=== PATIENT | female | born 1980 | race African-American/Black ===

== ENCOUNTER 2019-04-21 19:45 | Emergency (ER) | payer MEDICARE ==
[~2019-04-21] VITALS: Ht 170.2 cm; Wt 77.1 kg
--- OUTSIDE RECORDS SUMMARY | 2019-04-21 19:47 | XMS REPORT ---
[facility] Address Unknown Phone Unavailable Care Team Providers Care Drying Machine Receiver Name Role Phone Unavailable Unavailable Payers Payer Name Policy Type Policy Number Effective Date Expiration Date Problems This patient has no known problems. Allergies, Adverse Reactions, Alerts Allergy Name Allergy Type Status Severity Reaction(s) Onset Date Inactive Date Treating Clinician Comments No Known Allergies DA Active U 2019-01-13 00:00:00 No Known Contrast Allergies DA Active U 2006-12-25 00:00:00 No Known Drug Allergies DA Active U 2006-12-25 00:00:00 No Known Food Allergies DA Active U 2006-12-25 00:00:00 No Known Other Allergies DA Active U 2006-12-25 00:00:00 Medications This patient has no known medications. Results Test Description Test Time Test Comments Text Results Atomic Results Result Comments - CT MAXIFAC W/CONTRAST 2019-01-13 17:43:00 Name: TIN PRINCE [facility] : 1980 Age/S: 38 / F [address] [place] [address] Unit #: [id number] Loc: [place] [address] Phys: Rafael Padron DO Acct: [id number] Dis Date: Status: REG ER PHONE #: [phone] Exam Date: 01/13/2019 1713 FAX #: [phone] Reason: pain EXAMS: CPT CODE: [id number] CT MAXIFAC W/CONTRAST [address] WITH IV CONTRAST AND MULTIPLANAR REFORMATS 01/13/2019 AT 1713 HOURS. CLINICAL HISTORY:Right posterior upper/lower teeth pain for 2 weeks. COMPARISON STUDIES: None relevant. ADMINISTERED CONTRAST: 100 mL of Isovue-300 intravenously. DLP: 187.34 mGy-cm FINDINGS: Contiguous 2.5 mm axial images of the maxillofacial bones were obtained with IV contrast. The acquired data was used to create multiplanar reformatted images. A focal cavity is identified inferomedially to the right 2nd inferior molar tooth on a background of prior dental crowns. Additional multiple dental crowns are also seen bilaterally with no periapical abscesses on the right. A large cavity with a missing crown is identified involving the left inferior 2nd molar tooth with a small lucent periapical abscess. No acute periosteal reaction or bone destruction. No organized soft tissue abscess. The nasopharynx, oropharynx, glottis and visualized subglottic trachea are unremarkable. Subcentimeter bilateral cervical lymph nodes are seen, not enlarged by size criteria. The parapharyngeal and bead wire taper spaces are intact. No abnormal intracranial enhancement along the visualized segments. Mild mucosal thickening is seen along the floor of both maxillary sinuses. Clear mastoid air cells. Mild mucosal thickening of the left frontal sinus is also noted. IMPRESSION: 1. Multifocal bilateral odontogenic disease with focal cavities involving the right and left 2nd inferior molar teeth. Small left 2nd molar periapical abscess. 2. No gumline, submandibular or cervical soft tissue abscess. 3. No pathologic cervical adenopathy. 4. Chronic inflammatory sinus disease. ____ CT imaging performed at this location utilizes radiation dose optimization techniques which include one or more of the following: - Automated exposure control -Adjustment of the mA and/or kV according to patient size -Use of iterative reconstruction technique PAGE 1 Signed Report (CONTINUED) Name: TIN PRINCE [facility] : 1980 Age/S: 38 / F [address] [place] [address] Unit #: [id number] Loc: [place] [address] Phys: PadronRafael son DO Acct: [id number] Dis Date: Status: REG ER PHONE #: [phone] Exam Date: 01/13/2019 1713 FAX #: [phone] Reason: pain EXAMS: CPT CODE: [id number] CT MAXIFAC W/CONTRAST 81574 <Continued> SL: ER-H at 1743 Reported and signed by: Robin Purdy M.D. CC: Rafael Padron DO Technologist:Jamal Miller, RT(R) CTDI: DLP: Trnscb Date/Time: 01/13/2019 (1742) [email or web address] Orig Print D/T: S: 01/13/2019 (1746) CTDI: DLP: PAGE 2 Signed Report BASIC METABOLIC PANEL 2019-01-13 16:35:00 SODIUM (test code=NA) 142 mEq/L 134-147 POTASSIUM (test code=K) 3.5 mEq/L 3.4-5.0 CHLORIDE (test code=CL) 111 mEq/L 100-108 CARBON DIOXIDE (test code=CO2) 27 mEq/L 21-33 ANION GAP (test code=GAP) 8 0-20 GLUCOSE (test code=GLU) 103 mg/dL 70-110 BLOOD UREA NITROGEN (test code=BUN) 11 mg/dL 7-18 GLOMERULAR FILTRATION RATE (test code=GFR) 135.4 105-110 Units of measure=ml/min/1.73 m2 CREATININE (test code=CREAT) 0.6 mg/dL 0.6-1.3 CALCIUM (test code=CA) 9.0 mg/dL 8.0-10.5 CBC W/AUTO [id number] 16:22:00* Test Item Value Reference Range Comments WHITE BLOOD CELL (test code=WBC) 5.37 x10 3/uL 4.5-11.0 RED BLOOD CELL (test code=RBC) 4.19 x10 6/uL 3.54-5.02 HEMOGLOBIN (test code=HGB) 12.0 g/dL 11.0-15.0 HEMATOCRIT (test code=HCT) 38.3 % 33.0-45.0 MEAN CELL VOLUME (test code=MCV) 91.4 fL 81.0-99.0 MEAN CELL HGB (test code=MCH) 28.6 pg 27.0-33.0 MEAN CELL HGB CONCETRATION (test code=MCHC) 31.3 g/dL 33.0-37.0 RED CELL DISTRIBUTION WIDTH CV (test code=RDW) 15.1 % 11.5-14.5 RED CELL DISTRIBUTION WIDTH SD (test code=RDW-SD) 50.3 fL 37.0-54.0 PLATELET COUNT (test code=PLT) 316 x10 3/uL 150-400 MEAN PLATELET VOLUME (test code=MPV) 10.2 fL 7.0-9.0 NEUTROPHIL % (test code=NT%) 46.1 % 56.0-77.0 IMMATURE GRANULOCYTE % (test code=IG%) 0.0 % 0.0-2.0 LYMPHOCYTE % (test code=LY%) 43.6 % 14.0-32.0 MONOCYTE % (test code=MO%) 5.8 % 4.8-9.0 EOSINOPHIL % (test code=EO%) 3.4 % 0.3-3.7 BASOPHIL % (test code=BA%) 1.1 % 0.0-2.0 NUCLEATED RBC % (test code=NRBC%) 0.0 % 0-0 NEUTROPHIL # (test code=NT#) 2.48 x10 3/uL 2.0-7.6 IMMATURE GRANULOCYTE # (test code=IG#) 0.00 x10 3/uL 0.00-0.03 LYMPHOCYTE # (test code=LY#) 2.34 x10 3/uL 1.0-3.8 MONOCYTE # (test code=MO#) 0.31 x10 3/uL 0.1-0.8 EOSINOPHIL # (test code=EO#) 0.18 x10 3/uL 0.0-0.2 BASOPHIL # (test code=BA#) 0.06 x10 3/uL 0.0-0.2 NUCLEATED RBC # (test code=NRBC#) 0.00 x10 3/uL 0.0-0.1 MANUAL DIFF REQUIRED (test code=MDIFF) NO
--- OUTSIDE RECORDS SUMMARY | 2019-04-21 19:47 | XMS REPORT | Clinical Summary ---
Author Author [facility] [employer] [facility] [employer] Address Unknown Phone Unavailable Care Team Providers Care Senior Office Assistant Name Role Phone Asked, No Pcp PCP Unavailable Allergies No Known Allergies Medications Not on file Active Problems Not on file Social History Date Tobacco Use Types Packs/Day Years Used Former Smoker Alcohol Use Drinks/Week oz/Week Comments No Sex Assigned at Date Recorded Not on file Industry Job Start Date Occupation Not on file Not on file Not on file Travel End Travel History Travel Start No recent travel history available. Last Filed Vital Signs Not on file Plan of Treatment Health Maintenance Due Date Last Done Comments INFLUENZA VACCINE 06/12/2019 Results Not on fileafter 04/20/2018 Insurance Type Payer Benefit Subscriber ID Effective Phone Address Plan / Dates Group Medicaid MEDICAID MEDICAID xxxxxxxxx 2017-P resent HMO CIGNA CIGNA OPEN xxxxxxxxxxx 2017- ACCESS/NET Present WORK Advance Directives Patient has advance care planning documents on file. For more information, vamsi bledsoe contact: Gurinder Witt [address] [place] [id number]
--- OUTSIDE RECORDS SUMMARY | 2019-04-21 19:47 | XMS REPORT | Continuity of Care Document ---
Author Author [facility] Address Unknown Phone Unavailable Problems Problem Status Onset Date Classification Date Reported Comments Source Tuberculosis screening 08/16/2016 Diagnosis 08/16/2016 [facility] Medications Medication Details Route Status Patient Instructions Ordering Provider Order Date Source Dexamethasone 1 MG/ML / Neomycin 3.5 MG/ML / Polymyxin B 51467 UNT/ML Ophthalmic Suspension ciozhqwz-rlvwfijhd-ehlbnvoo 3.5 mg/mL-10,000 unit/mL-0.1% eye drops INT 1GTT OU QID Active [facility] Purified Protein Derivative of Tuberculin 50 UNT/ML Injectable Solution [Tubersol] Tubersol 5 tub. unit/0.1 mL intradermal injection solution Active [facility] Allergies, Adverse Reactions, Alerts Substance Category Reaction Severity Reaction type Status Date Reported Comments Source Immunizations Immunization Date Given Site Status Last Updated Comments Source Results Order Name Results Value Reference Range Date Interpretation Comments Source Vital Signs Vital Sign Value Date Comments Source Encounters Location Location Details Encounter Type Encounter Number Reason For Visit Attending Provider ADM Date DC Date Status Source [place] - [facility] - [id number] Phipps, EXPLOSIVE ORDNANCE MANAGER: [address] [address], Ph. [phone] [id number] Noreen Phipps 08/16/2016 [facility] Procedures Procedure Code Date Perfomer Comments Source
--- OUTSIDE RECORDS SUMMARY | 2019-04-21 19:47 | XMS REPORT | Encounter Summary ---
Author Organization Unknown Address [address] [place] [address] Phone [phone] Reason for Visit Screening - TB Instructions 1. Tuberculosis screening PPD (purified protein derivative), skin test - Patient was advised to follow-up with [facility] within 48-72 hours. Tubersol 5 tub. unit/0.1 mL intradermal injection solution Discussion Note: None recorded. Patient educational handouts: No information available. Plan of Care Patient Instructions Please do not put a band aid on, do not scratch or rub on the site.Patient verbalizes understanding and agrees to the plan. Reminders Provider Appointments None recorded. Lab PPD (Purified Protein Derivative), Skin Test 08/16/2016 [facility] Referral None recorded. Procedures None recorded. Surgeries None recorded. Imaging None recorded. Medications Name Start Date glzlswye-pfptugsgc-hcaczfeu 3.5 mg/mL-10,000 unit/mL-0.1% eye drops INT 1GTT OU QID Tubersol 5 tub. unit/0.1 mL intradermal injection solution Medications Administered Name Date Tubersol 5 tub. unit/0.1 mL intradermal injection solution Take by intradermal route. [id number]:03:41 Vitals None recorded. Lab Results None recorded. Allergies None recorded. Problems None recorded. Procedures None recorded. Vaccine List None recorded. Social History None recorded. Past Encounters 08/16/2016 Tuberculosis Screening MICHELE Urena[facility]: [address] [place] [address], Ph. History of Present Illness Screening Request - TB Reported By: Patient Screening Request: BCG No prior BCG vaccination. PPD No past history of postive TB skin test (PPD), No previous severe local reaction to TB skin test (PPD). OTHER No prior vaccines within last month Review of Systems Screening - TB Reported By: Patient Physical Exam Screening Reported By: Patient General Appearance: General: well-developed, well-nourished, no acute distress
[2019-04-21 20:50] VITALS: BP 152/93
[2019-04-21] MEDS ORDERED: LORAZEPAM 1 MG TAB PO ONE (21:00)
== END 2019-04-21 21:25 | disposition home or self-care (01) ==
LOC: ER 19:45
DX: F41.1 Generalized anxiety disorder (principal); Z91.128 Patient's intentional underdosing of medication regimen for other reason
CPT/HCPCS: 99283